=== PATIENT | female | born 1975 | race Two or more races ===

== ENCOUNTER 2021-03-15 18:59 | Emergency (ER) | payer OTHER ==
[~2021-03-15] VITALS: Ht 160 cm; Wt 49.9 kg
[2021-03-15 19:05] VITALS: BP 93/58
== END 2021-03-16 01:08 | disposition left against medical advice (07) ==
LOC: ER 19:01
DX: M54.9 Dorsalgia, unspecified (principal); Z53.21 Procedure and treatment not carried out due to patient leaving prior to being seen by health care provider